=== PATIENT | female | born 1995 | race Caucasian/White ===

== ENCOUNTER 2016-09-30 21:51 | Emergency (ER) | payer OTHER ==
[~2016-09-30] VITALS: Ht 162.5 cm; Wt 54.4 kg
[~2016-09-30 21:51] MED LIST: DIFLUCAN150 MG PO; PREVIFEM TABLE1 EACH PO
[2016-09-30 23:31] LABS: BASO # 0.1 10*3/uL (0.0-0.1); BASO % 0.4 % (0.0-1.0); EOS % 0.2 % (1.0-4.0); HEMATOCRIT 36.9 % (37.0-47.0); HEMOGLOBIN 12.6 g/dl (12.0-16.0); IG # 0.1 10*3/uL (0.0-0.1); LYMPH # 1.6 10*3/uL (1.3-4.4); LYMPH % 9.5 % (27.0-41.0); MEAN CELL VOLUME 88.3 fl (81.0-99.0); MEAN CORPUSCULAR HGB 30.1 pg (27.0-31.0); MEAN CORPUSCULAR HGB CONC 34.1 g/dl (33.0-37.0); MEAN PLATELET VOLUME 10.2 fl (9.6-12.3); MONO # 1.1 10*3/uL (0.1-1.0); MONO % 6.5 % (3.0-9.0); NEUT # 13.6 10*3/uL (2.3-7.9); NEUT % 82.9 % (47.0-73.0); PLATELET COUNT AUTOMATED 273 10*3/uL (130-400); RED BLOOD COUNT 4.18 10*6/uL (4.10-5.10); RED CELL DISTRI WIDTH 12.3 % (0-14.5); WHITE BLOOD COUNT 16.4 10*3/uL (4.8-10.8)
[2016-09-30 23:39] LABS: PROTHROMBIN TIME 10.5 SECONDS (9.0-12.4)
[2016-09-30 23:46] LABS: ALBUMIN 4.3 gm/dl (3.1-4.5); ALKALINE PHOSPHATASE 92 U/L (45-117); BILIRUBIN, TOTAL 0.3 mg/dl (0.2-1.0); BUN 15 mg/dl (7-24); CARBON DIOXIDE 24 mmol/L (21-32); CHLORIDE 105 mmol/L (98-107); EST GLOM FILT AFRICAN AMERICAN > 60 ml/min; GLUCOSE 98 mg/dL (65-99); POTASSIUM 3.5 mmol/L (3.5-5.1); SGOT/AST 25 IU/L (3-35); SGPT/ALT 18 U/L (12-78); SODIUM 139 mmol/L (136-145)
== END 2016-10-01 00:14 | disposition short-term general hospital (02) ==
LOC: ED 21:51
PROVIDERS: Physician Assistant
DX: S06.300A Unspecified focal traumatic brain injury without loss of consciousness, initial encounter (principal); V86.69XA Passenger of other special all-terrain or other off-road motor vehicle injured in nontraffic accident, initial encounter; Y93.89 Activity, other specified; Y92.89 Other specified places as the place of occurrence of the external cause; Y99.8 Other external cause status

== ENCOUNTER → 2019-05-21 | Outpatient (CLI) | payer OTHER | END | disposition home or self-care (01) | LOC: US 05-18 16:00 | DX: Z34.81 Encounter for supervision of other normal pregnancy, first trimester (principal); Z3A.13 13 weeks gestation of pregnancy ==

== ENCOUNTER → 2019-06-13 | Outpatient (CLI) | payer OTHER | END | disposition home or self-care (01) | LOC: LAB 00:34 | DX: R73.09 Other abnormal glucose (principal) ==

== ENCOUNTER → 2019-07-13 | Outpatient (CLI) | payer OTHER | END | disposition home or self-care (01) | LOC: US 09:06 | DX: O32.1XX0 Maternal care for breech presentation, not applicable or unspecified (principal); Z3A.14 14 weeks gestation of pregnancy ==

== ENCOUNTER → 2019-09-05 | Outpatient (CLI) | payer OTHER ==
[2019-09-05 08:24] LABS: BASO # 0.1 10*3/uL (0.0-0.1); BASO % 0.4 % (0.0-1.0); EOS # 0.2 10*3/uL (0.0-0.4); EOS % 1.2 % (1.0-4.0); HEMATOCRIT 33.9 % (37.0-47.0); LYMPH # 2.3 10*3/uL (1.3-4.4); LYMPH % 15.1 % (27.0-41.0); MEAN CELL VOLUME 90.4 fl (81.0-99.0); MEAN CORPUSCULAR HGB 30.1 pg (27.0-31.0); MEAN CORPUSCULAR HGB CONC 33.3 g/dl (33.0-37.0); MEAN PLATELET VOLUME 10.2 fl (9.6-12.3); MONO # 1.2 10*3/uL (0.1-1.0); MONO % 7.9 % (3.0-9.0); NEUT # 11.5 10*3/uL (2.3-7.9); NEUT % 74.2 % (47.0-73.0); PLATELET COUNT AUTOMATED 271 10*3/uL (130-400); RED BLOOD COUNT 3.75 10*6/uL (4.10-5.10); RED CELL DISTRI WIDTH 13.4 % (0-14.5); WHITE BLOOD COUNT 15.5 10*3/uL (4.8-10.8)
== END | disposition home or self-care (01) ==
LOC: LAB 07:48
PROVIDERS: Obstetrics & Gynecology
DX: Z34.02 Encounter for supervision of normal first pregnancy, second trimester (principal); Z3A.24 24 weeks gestation of pregnancy

== ENCOUNTER → 2019-10-16 | Outpatient (CLI) | payer OTHER | END | disposition home or self-care (01) | LOC: US 11:06 | DX: Z34.03 Encounter for supervision of normal first pregnancy, third trimester (principal); Z3A.33 33 weeks gestation of pregnancy ==

== ENCOUNTER → 2019-10-22 | Outpatient (CLI) | payer OTHER | END | disposition home or self-care (01) | LOC: US 10:29 | DX: Z34.03 Encounter for supervision of normal first pregnancy, third trimester (principal); Z3A.35 35 weeks gestation of pregnancy ==

== ENCOUNTER → 2022-06-08 | Outpatient (CLI) | payer OTHER | END | disposition home or self-care (01) | LOC: LAB 12:12 | PROVIDERS: ATTEND Nurse Practitioner Women's Health | DX: R73.02 Impaired glucose tolerance (oral) (principal); Z68.32 Body mass index [BMI] 32.0-32.9, adult ==

== ENCOUNTER 2022-09-29 12:48 | Emergency (ER) | payer OTHER ==
[~2022-09-29] VITALS: Wt 99.8 kg
== END 2022-09-29 14:23 | disposition home or self-care (01) ==
LOC: ED 12:48
DX: S61.215A Laceration without foreign body of left ring finger without damage to nail, initial encounter (principal); W26.0XXA Contact with knife, initial encounter; Y93.89 Activity, other specified; Y92.89 Other specified places as the place of occurrence of the external cause; Y99.8 Other external cause status